=== PATIENT | female | born 1955 | race Caucasian/White ===

== ENCOUNTER → 2021-06-29 | Outpatient (CLI) | payer MEDICARE | LOC: MAMMO 09:30 | PROVIDERS: ATTEND Obstetrics & Gynecology | DX: Z12.31 Encounter for screening mammogram for malignant neoplasm of breast (principal) | CPT/HCPCS: 77067 ==

== ENCOUNTER 2022-06-05 18:49 | Emergency (ER) | payer MEDICARE, OTHER ==
[~2022-06-05] VITALS: Ht 152.4 cm; Wt 56.7 kg
[2022-06-05] MEDS ORDERED: CEPHALEXIN500 MG PO (20:26)
[2022-06-05] MEDS ORDERED: NEOMYCIN/POLYMYX/BACITR OINT 0.9 GM PKT ONE (20:40)
== END 2022-06-05 20:45 | disposition home or self-care (01) ==
LOC: FSED 19:02
DX: S83.8X1A Sprain of other specified parts of right knee, initial encounter (principal); S80.211A Abrasion, right knee, initial encounter; W18.39XA Other fall on same level, initial encounter; Y92.481 Parking lot as the place of occurrence of the external cause; I10 Essential (primary) hypertension
CPT/HCPCS: 99283